=== PATIENT | female | born 1955 | race Caucasian/White ===

== ENCOUNTER 2019-08-01 10:46 | Emergency (ER) | payer MEDICAID, OTHER ==
--- NOTE | 2019-08-01 12:12 | RAD REPORT ---
EXAM DESCRIPTION: RAD - Humerus Left - 08/01/2019 11:40 am CLINICAL HISTORY: PAIN COMPARISON: No comparisons FINDINGS: Mild degenerative changes are present in the left shoulder. No acute fracture or dislocati on seen.
--- NOTE | 2019-08-01 12:15 | EDPHYS ---
Physician Documentation [facility] Name: Adriana Danielle Age: 64 yrs Sex: Female : 1955 Arrival Date: 08/01/2019 Time: 10:49 Bed 4 Private MD: ED Physician Sixto Vogt HPI: 07/31 10:57 This 64 yrs old Female presents to ER via Unassigned with complaints of rn Shoulder Pain, Arm Pain. 10:57 The patient or guardian complains of an injury, pain. left shoulder. Onset: The rn symptoms/episode began/occurred 4 day(s) ago. Modifying factors: the symptoms are alleviated by remaining still, The symptoms are aggravated by movement, rotation of arm. Severity of symptoms: At their worst the symptoms were moderate, in the emergency department the symptoms are unchanged. The patient has not experienced similar symptoms in the past. reports fall a few days ago, landed on left arm/shoulder with it tucked in, reports isolated injury and pain to left proximal arm, no forearm/elbow/collarbone pain. . Historical: - Allergies: 11:09 naproxen; aa5 11:09 tramadol; aa5 11:09 Amoxicillin; aa5 - Home Meds: 11:09 Napoleon 10-325 mg Oral tab 1 tab every 6 hours [Active]; vitamin D [Active]; calcium aa5 [Active]; Trazodone Oral [Active]; Zoloft Oral [Active]; - PMHx: 11:09 Spinal stenosis; Hyperlipidemia; Sleep Apnea; Depression; Osteopenia; aa5 - PSHx: 11:09 back sx; aa5 - Immunization history:: Flu vaccine is not up to date. - Social history:: Smoking status: Patient denies any tobacco usage or history of. - Family history:: not pertinent. - Hospitalizations: : No recent hospitalization is reported. ROS: 10:57 Constitutional: Negative for fever, chills, and weight loss, MS/Extremity: + left arm rn pain and injury Neuro: Negative for headache, weakness, numbness, tingling, and seizure. Exam: 10:57 Constitutional: This is a well developed, well nourished patient who is awake, alert, rn and in no acute distress. MS/ Extremity: Pulses equal, no cyanosis. Neurovascular intact. No tenderness left hand/wrist/forearm/elbow/shoulder/collarabone. + tenderness and painful ROM left proximal humerus. No ecchymosis. No gross deformity. held in passie flexion of elbow. Neuro: Awake and alert, GCS 15, oriented to person, place, time, and situation. Ambulatory to room Vital Signs: 10:57 BP 139 / 69; Pulse 67; Resp 16 S; Temp 98.1(TE); Pulse Ox 97% on R/A; Weight 77.11 kg aa5 (R); Height 5 ft. 4 in. (162.56 cm) (R); Pain 8/10; 11:36 BP 133 / 73; Pulse 64; Resp 18 S; Pulse Ox 99% on R/A; ca1 12:36 BP 138 / 69; Pulse 71; Resp 17 S; Pulse Ox 99% on R/A; ca1 10:57 Body Mass Index 29.18 (77.11 kg, 162.56 cm) aa5 MDM: 10:55 Patient medically screened. rn 12:14 Differential diagnosis: Anterior dislocation with fracture, Anterior dislocation rn without fracture, humeral head fracture, FX humeral shaft. Data reviewed: vital signs, nurses notes, radiologic studies, plain films, and as a result, I will discharge patient. Counseling: I had a detailed discussion with the patient and/or guardian regarding: the historical points, exam findings, and any diagnostic results supporting the discharge/admit diagnosis, radiology results, the need for outpatient follow up, to return to the emergency department if symptoms worsen or persist or if there are any questions or concerns that arise at home. Special discussion: I discussed with the patient/guardian in detail that at this point there is no indication for admission to the hospital. It is understood, however, that if the symptoms persist or worsen the patient needs to return immediately for re-evaluation. 12:14 Test interpretation: by ED physician or midlevel provider: plain radiologic studies, rn XRAY left humerus negative for acute fracture/dislocation.. 07/31 10:57 Order name: XRAY Humerus LEFT; Complete Time: 12:07 rn 07/31 10:57 Order name: Sling; Complete Time: 11:28 rn Administered Medications: No medications were administered Disposition: 08/01/19 12:15 Discharged to Home. Impression: Contusion of left upper arm. - Condition is Stable. - Discharge Instructions: Contusion. - Medication Reconciliation Form, Thank You Letter, Antibiotic Education, Prescription Opioid Use form. - Follow up: Private Physician; When: As needed; Reason: Recheck today's complaints, Re-evaluation by your physician. - Problem is new. - Symptoms have improved. Signatures: Dispatcher [employer] EDMS Sixto Vogt MD MD rn Calderon, Audri RN RN aa5 Daija Pan RN RN ca1 Corrections: (The following items were deleted from the chart) 12:37 12:15 08/01/2019 12:15 Discharged to Home. Impression: Contusion of left upper arm. ca1 Condition is Stable. Forms are Medication Reconciliation Form, Thank You Letter, Antibiotic Education, Prescription Opioid Use. Follow up: Private Physician; When: As needed; Reason: Recheck today's complaints, Re-evaluation by your physician. Problem is new. Symptoms have improved. rn
--- NOTE | 2019-08-01 12:15 | ER ---
Nurse's Notes [facility] Name: Adriana Danielle Age: 64 yrs Sex: Female : 1955 Arrival Date: 08/01/2019 Time: 10:49 Bed 4 Private MD: Diagnosis: Contusion of left upper arm Presentation: 07/31 10:57 Chief complaint: Patient states: "I fell onto my left arm Saturday night". aa5 10:57 Coronavirus screen: Proceed with normal triage. Patient denies a cough. Patient denies aa5 shortness of breath or difficulty breathing. Patient denies measured and/or subjective temperature greater than 100.4F prior to today's visit. Patient denies travel on a cruise ship or to a country the [facility] currently lists as an affected area. Patient denies contact with known and/or suspected case of COVID-19. Ebola Screen: Patient negative for fever greater than or equal to 101.5 degrees Fahrenheit, and additional compatible Ebola Virus Disease symptoms. Initial Sepsis Screen: Does the patient meet any 2 criteria? No. Patient's initial sepsis screen is negative. Does the patient have a suspected source of infection? No. Patient's initial sepsis screen is negative. Risk Assessment: Do you want to hurt yourself or someone else? Patient reports no desire to harm self or others. Onset of symptoms was July 2019. 10:57 Acuity: ANDERS 4 aa5 10:57 Method Of Arrival: Ambulatory aa5 Historical: - Allergies: 11:09 naproxen; aa5 11:09 tramadol; aa5 11:09 Amoxicillin; aa5 - Home Meds: 11:09 Carpenter 10-325 mg Oral tab 1 tab every 6 hours [Active]; vitamin D [Active]; calcium aa5 [Active]; Trazodone Oral [Active]; Zoloft Oral [Active]; - PMHx: 11:09 Spinal stenosis; Hyperlipidemia; Sleep Apnea; Depression; Osteopenia; aa5 - PSHx: 11:09 back sx; aa5 - Immunization history:: Flu vaccine is not up to date. - Social history:: Smoking status: Patient denies any tobacco usage or history of. - Family history:: not pertinent. - Hospitalizations: : No recent hospitalization is reported. Screenin:07 Abuse screen: Denies threats or abuse. Denies injuries from another. Nutritional ca1 screening: No deficits noted. Tuberculosis screening: No symptoms or risk factors identified. Fall Risk None identified. Assessment: 11:07 General: Appears in no apparent distress. comfortable, Behavior is calm, cooperative, ca1 appropriate for age. Pain: Complains of pain in left bicep and left tricep Pain currently is 8 out of 10 on a pain scale. Pain began 2-3 days ago. Neuro: Level of Consciousness is awake, alert, obeys commands, Oriented to person, place, time, situation, Appropriate for age. Cardiovascular: Heart tones S1 S2 present Capillary refill < 3 seconds Patient's skin is warm and dry. Derm: Skin is intact, is healthy with good turgor, Skin is. Musculoskeletal: Circulation, motion, and sensation intact. Capillary refill < 3 seconds, Range of motion: limited in left shoulder. 11:36 Reassessment: Patient appears in no apparent distress at this time. Patient and/or ca1 family updated on plan of care and expected duration. Pain level reassessed. Patient is alert, oriented x 3, equal unlabored respirations, skin warm/dry/pink. 12:36 Reassessment: Patient appears in no apparent distress at this time. Patient and/or ca1 family updated on plan of care and expected duration. Pain level reassessed. Vital Signs: 10:57 BP 139 / 69; Pulse 67; Resp 16 S; Temp 98.1(TE); Pulse Ox 97% on R/A; Weight 77.11 kg aa5 (R); Height 5 ft. 4 in. (162.56 cm) (R); Pain 8/10; 11:36 BP 133 / 73; Pulse 64; Resp 18 S; Pulse Ox 99% on R/A; ca1 12:36 BP 138 / 69; Pulse 71; Resp 17 S; Pulse Ox 99% on R/A; ca1 10:57 Body Mass Index 29.18 (77.11 kg, 162.56 cm) aa5 ED Course: 10:49 Patient arrived in ED. as 10:49 Arm band placed on. aa5 10:54 Sixto Vogt MD is Attending Physician. rn 10:58 Daija Pan RN is Primary Nurse. ca1 11:07 Triage completed. aa5 11:07 Patient has correct armband on for positive identification. Bed in low position. Call ca1 light in reach. Side rails up X 1. Pulse ox on. NIBP on. 11:07 Warm blanket given. ca1 11:20 No provider procedures requiring assistance completed. Sling applied to left arm. ca1 11:41 XRAY Humerus LEFT In Process Unspecified. EDMS 12:36 Patient did not have IV access during this emergency room visit. ca1 Administered Medications: No medications were administered Outcome: 12:15 Discharge ordered by . rn 12:36 Discharged to home ambulatory. ca1 12:36 Condition: good 12:36 Discharge instructions given to patient, Instructed on discharge instructions, follow up and referral plans. Demonstrated understanding of instructions, follow-up care. 12:37 Patient left the ED. ca1 Signatures: Dispatcher [employer] EDMS Sheela Abad Roman, MD MD rn Calderon, Audri RN RN aa5 Daija Pan RN RN ca1 Corrections: (The following items were deleted from the chart) 11:06 10:57 Arm band placed on aa5 aa5 11:09 11:07 Musculoskeletal: Circulation, motion, and sensation intact. Capillary refill < 3 ca1 seconds, ca1
[2019-08-01 12:48] VITALS: O2SAT 99
[2019-08-01 12:50] VITALS: TEMP 98.1
[2019-08-01 12:51] VITALS: BP 138/69
== END 2019-08-01 12:37 | disposition home or self-care (01) ==
LOC: ER 10:46
DX: S40.012A Contusion of left shoulder, initial encounter (principal); W19.XXXA Unspecified fall, initial encounter; Y93.9 Activity, unspecified; Y92.9 Unspecified place or not applicable; E78.5 Hyperlipidemia, unspecified; F32.9 Major depressive disorder, single episode, unspecified; Z88.1 Allergy status to other antibiotic agents; Z88.5 Allergy status to narcotic agent; Z88.6 Allergy status to analgesic agent
CPT/HCPCS: 99283